=== PATIENT | female | born 1985 | race Caucasian/White ===

== ENCOUNTER 2020-03-14 08:35 | Outpatient (CLI) | payer SELFPAY ==
--- NOTE | 2020-03-14 08:30 | MM_ITS ---
WS: [id number] BILATERAL SCREENING DIGITAL MAMMOGRAM WITH CAD HISTORY: screening both breast COMPARISON: None available. Bilateral CC and MLO views submitted. Computer aided detection analyzed. Breast composition: The breasts are heterogeneously dense, which may obscure small masses. No suspici ous masses, microcalcifications or architectural distortion. MM/[id number] IMPRESSION: BI-RADS: 1-Negative FOLLOW UP: 1 Year Follow-up
== END 2020-03-14 08:36 | disposition home or self-care (01) ==
PROVIDERS: Visit Provider Nurse Practitioner Women's Health
DX: Z12.31 Encounter for screening mammogram for malignant neoplasm of breast (principal)
CPT/HCPCS: 77067

== ENCOUNTER → 2020-06-26 14:14 | Outpatient (BNVA) | payer OTHER, SELFPAY | PROVIDERS: Visit Provider Emergency Medicine | DX: Z11.59 Encounter for screening for other viral diseases (principal) | CPT/HCPCS: 87400; 87635 ==

== ENCOUNTER → 2020-11-08 12:56 | Outpatient (BNVA) | payer SELFPAY | PROVIDERS: PCP Nurse Practitioner Family; Visit Provider Urology | DX: N39.0 Urinary tract infection, site not specified (principal) | CPT/HCPCS: 81003 ==

== ENCOUNTER → 2023-11-06 07:48 | Outpatient (BNVA) | payer BC, SELFPAY | PROVIDERS: PCP Nurse Practitioner Family; Visit Provider Nurse Practitioner Women's Health | DX: N92.6 Irregular menstruation, unspecified (principal); Z34.90 Encounter for supervision of normal pregnancy, unspecified, unspecified trimester; I10 Essential (primary) hypertension | CPT/HCPCS: 81025; 86850; 86900 ==

== ENCOUNTER → 2023-11-18 11:04 | Outpatient (BNVA) | payer BC, SELFPAY | PROVIDERS: PCP Nurse Practitioner Family; Visit Provider Nurse Practitioner Women's Health | DX: Z34.90 Encounter for supervision of normal pregnancy, unspecified, unspecified trimester (principal) | CPT/HCPCS: 76801 ==

== ENCOUNTER → 2023-11-22 08:28 | Outpatient (BNVA) | payer BC, MEDICAID, SELFPAY | PROVIDERS: PCP Nurse Practitioner Family; Visit Provider Nurse Practitioner Women's Health | DX: Z34.90 Encounter for supervision of normal pregnancy, unspecified, unspecified trimester (principal) | CPT/HCPCS: 80053; 80307; 83036; 84315; 84443; 85025; 86592; 86762; 86803; 87086; 87340; 87806 ==

== ENCOUNTER 2023-11-28 13:06 | Outpatient (CLI) | payer BC, MEDICAID, SELFPAY ==
[2023-11-28 15:38] LABS: Total Volume, Urine 2200 mL; Urine Total Protein < 4.0 mg/dL (0-150)
[2023-11-28 15:39] LABS: Urine Total Protein 24 Hour < 88.0 mg/24hr (0-150)
== END 2023-11-28 13:07 | disposition home or self-care (01) ==
LOC: LAB 13:09
PROVIDERS: PCP Nurse Practitioner Family; Visit Provider Nurse Practitioner Women's Health
DX: I10 Essential (primary) hypertension (principal); O09.529 Supervision of elderly multigravida, unspecified trimester; O09.899 Supervision of other high risk pregnancies, unspecified trimester
CPT/HCPCS: 84156

== ENCOUNTER → 2023-12-17 09:09 | Outpatient (BNVA) | payer BC, MEDICAID, SELFPAY | PROVIDERS: PCP Nurse Practitioner Family; Visit Provider Obstetrics & Gynecology | DX: O09.899 Supervision of other high risk pregnancies, unspecified trimester (principal); Z3A.00 Weeks of gestation of pregnancy not specified | CPT/HCPCS: 82950 ==

== ENCOUNTER → 2024-01-03 08:26 | Outpatient (BNVA) | payer BC, MEDICAID, SELFPAY | PROVIDERS: PCP Nurse Practitioner Family; Visit Provider Obstetrics & Gynecology | DX: Z34.90 Encounter for supervision of normal pregnancy, unspecified, unspecified trimester (principal); Z14.1 Cystic fibrosis carrier | CPT/HCPCS: 82105 ==

== ENCOUNTER → 2024-01-30 09:24 | Outpatient (BNVA) | payer BC, MEDICAID, SELFPAY | PROVIDERS: PCP Nurse Practitioner Family; Visit Provider Obstetrics & Gynecology | DX: Z34.90 Encounter for supervision of normal pregnancy, unspecified, unspecified trimester (principal) | CPT/HCPCS: 76805 ==

== ENCOUNTER → 2024-02-26 08:04 | Outpatient (BNVA) | payer BC, MEDICAID, SELFPAY | PROVIDERS: PCP Nurse Practitioner Family; Visit Provider Obstetrics & Gynecology | DX: Z34.90 Encounter for supervision of normal pregnancy, unspecified, unspecified trimester (principal) | CPT/HCPCS: 76816 ==

== ENCOUNTER → 2024-02-27 07:52 | Outpatient (BNVA) | payer BC, MEDICAID, SELFPAY | PROVIDERS: PCP Nurse Practitioner Family; Visit Provider Nurse Practitioner Women's Health | DX: O09.899 Supervision of other high risk pregnancies, unspecified trimester (principal); Z3A.24 24 weeks gestation of pregnancy | CPT/HCPCS: 82950; 84315; 87086 ==

== ENCOUNTER → 2024-03-31 08:00 | Outpatient (BNVA) | payer BC, MEDICAID, SELFPAY | PROVIDERS: PCP Nurse Practitioner Family; Visit Provider Nurse Practitioner Women's Health | DX: O09.899 Supervision of other high risk pregnancies, unspecified trimester (principal) | CPT/HCPCS: 84315; 85025 ==

== ENCOUNTER → 2024-04-24 08:54 | Outpatient (BNVA) | payer BC, MEDICAID, SELFPAY | PROVIDERS: PCP Nurse Practitioner Family; Visit Provider Obstetrics & Gynecology | DX: Z53.9 Procedure and treatment not carried out, unspecified reason (principal) | CPT/HCPCS: 84315 ==

== ENCOUNTER → 2024-05-06 08:06 | Outpatient (BNVA) | payer BC, MEDICAID, SELFPAY | PROVIDERS: PCP Nurse Practitioner Family; Visit Provider Nurse Practitioner Women's Health | DX: O99.019 Anemia complicating pregnancy, unspecified trimester (principal) | CPT/HCPCS: 84315; 85025 ==

== ENCOUNTER → 2024-05-21 08:48 | Outpatient (BNVA) | payer BC, MEDICAID, SELFPAY | PROVIDERS: PCP Nurse Practitioner Family; Visit Provider Nurse Practitioner Women's Health | DX: Z36.4 Encounter for antenatal screening for fetal growth retardation (principal); Z3A.37 37 weeks gestation of pregnancy | CPT/HCPCS: 76816 ==

== ENCOUNTER 2024-05-21 10:02 | Outpatient (CLI) | payer BC, MEDICAID, SELFPAY ==
[2024-05-21 10:10] VITALS: BMI 34.2
[2024-05-21 10:14] VITALS: BP 146/87; PULSE 77
[2024-05-21 10:34] VITALS: BP 134/82; PULSE 77
[2024-05-21 10:39] LABS: Basophils # 0.1 10^3/uL (0.0-0.1); Basophils % 0.6 %; Eosinophils # 0.1 10^3/uL (0.0-0.8); Eosinophils % 1.5 %; Hematocrit 33.6 % (36-47); Lymphocytes # 1.8 10^3/uL (0.8-4.8); Lymphocytes % 21.7 %; Mean Corpuscular HGB Conc 32.1 g/dL (30-55); Mean Corpuscular Hemoglobin 31.1 pg (27-33); Mean Corpuscular Volume 96.8 fl (85-98); Monocytes # 0.7 10^3/uL (0.2-0.9); Monocytes % 8.2 %; Neutrophils # 5.52 10^3/uL (1.8-7.7); Nucleated Red Blood Cells % 0 %; Platelet Count 178 10^3/cmm (157-399); Red Blood Count 3.47 10^6/uL (3.85-5.65); Red Cell Distribution Width 14.4 % (12.1-15.1); White Blood Count 8.22 10^3/uL (3.29-11.43)
[2024-05-21 10:47] LABS: Bilirubin Urine Negative (Negative); Blood Urine 3+ (Negative); Glucose Urine UA Negative (Normal); Ketones Urine 1+ (Negative); Leukocyte Esterase Urine 3+ (Negative); Nitrate Urine Negative (Negative); Protein Urine Trace (Negative); Specific Gravity, Urine 1.012 (1.005-1.030); Urine Appearance Cloudy (CLEAR); Urine Color Yellow (Yellow); pH Urine 6.5 (5-7)
[2024-05-21 10:53] LABS: Add Urine Microscopic? YES; Bacteria Urine 4+ /hpf; Hyaline Casts Urine 2.87 /lpf; Squamous Epithelial Cell Urine 21-50 /hpf (0-5); WBC Urine >100 /hpf (0-5)
[2024-05-21 10:54] VITALS: BP 136/77; PULSE 77
[2024-05-21 10:58] LABS: Alanine Aminotransferase 11 U/L (0-33); Albumin Level 3.5 g/dL (3.5-5.2); Alkaline Phosphatase 92 U/L (35-105); Aspartate Amino Transferase 17 U/L (0-32); Blood Urea Nitrogen 7 mg/dL (6-20); Calcium 9.2 mg/dL (8.5-10.5); Carbon Dioxide 20 mmol/L (22-29); Chloride 101 mmol/L (98-107); Globulin 3.4 g/dL (1.3-4.6); Glomerular Filtration Rate 94.2 mL/min (90-130); Glucose 97 mg/dL (65-115); Osmolality Calculated 278 mOsm/kg (285-295); Sodium 135 mmol/L (136-145); Total Bilirubin 0.2 mg/dL (0.15-1.2); Total Protein 6.9 g/dL (6.6-8.7); Uric Acid 5.9 mg/dL (2.4-5.7)
[2024-05-21 11:01] LABS: Anion Gap 17.9 (5-19); Potassium 3.9 mmol/L (3.5-5.1)
[2024-05-21 11:05] LABS: Urine Creatinine 88 mg/dL (28-217); Urine Protein Random 19 mg/dL
[2024-05-21 11:06] LABS: UPRO/UCREAT Ratio 0.22 mg/mg CR
[2024-05-21 11:14] VITALS: BP 125/78; PULSE 80
[2024-05-21 11:28] LABS: Add Urine Culture? Yes
[2024-05-21 11:34] VITALS: BP 126/78; PULSE 80
[2024-05-21 11:50] VITALS: BP 126/78; PULSE 80; RESP 16
== END 2024-05-21 11:50 | disposition home or self-care (01) ==
LOC: OPOB 10:02 → OBGYN 10:03
PROVIDERS: Absent Provider Obstetrics & Gynecology; PCP Nurse Practitioner Family; Visit Provider Obstetrics & Gynecology
DX: O26.899 Other specified pregnancy related conditions, unspecified trimester (principal); Z3A.00 Weeks of gestation of pregnancy not specified; R03.0 Elevated blood-pressure reading, without diagnosis of hypertension
CPT/HCPCS: 36415; 59025; 80053; 81001; 82570; 84156; 84315; 84550; 85025; 87081; 87086; 99211

== ENCOUNTER 2024-06-01 20:32 | Inpatient (IN) | payer BC, MEDICAID, SELFPAY ==
[2024-06-01 19:50] VITALS: BMI 34.7
[2024-06-01 20:16] VITALS: BP 135/85; PULSE 86
[2024-06-01 20:25] LABS: Nitrazine Paper, PH Positive
[2024-06-01 20:32] VITALS: BP 132/82; PULSE 85
--- NOTE | 2024-06-01 21:35 | P.HP_ITS ---
Providers/Chief Complaint 2 Admitting Physician: Doc Jaquez MD Primary REPAIR MILLER: Moshe Jacques MD Primary Care Provider: MARQUEZ Stone Chief Complaint: Poss. SROM HPI REPAIR MILLER History of Present Illness Jeanna Mills is a 39 year old female EDC June 17, 2024 at 37 w 5 d no complications presented c/o fluid leakage mild UCs no bleeding + active movements Present Details : 2 Para: 1 Labs Rubella: Immune RPR: Negative GBS: Negative Medications/Allergies Home Medications Medication Instructions Recorded Confirmed Last Taken Type nitrofurantoin 100 mg PO BID PRN RUTIs #60 caps 11/06/22 05/28/24 Unknown Rx monohydrate/macrocrystals 100 mg capsule (Macrobid) PNV 153-FA 400 mcg-om3 35 mg-dha tab PO 11/22/23 05/28/24 Unknown History 25 mg-epa 5 mg-fish oil chew tablet ( Gummies) aspirin 81 mg tablet,delayed 81 mg PO DAILY 02/27/24 05/28/24 Unknown History release (Adult Aspirin Regimen) escitalopram oxalate 10 mg tablet 10 mg PO DAILY #30 tabs 03/31/24 05/28/24 Unknown Rx (Lexapro) escitalopram oxalate 5 mg tablet 5 mg PO DAILY #30 tabs 03/31/24 05/28/24 Unknown Rx ferrous sulfate 325 mg (65 mg 325 mg PO BID #60 tabs 03/31/24 05/28/24 Unknown Rx iron) tablet (Feosol) Allergies Allergy/AdvReac Type Severity Reaction Status Date / Time ciprofloxacin AdvReac Mild Nausea Verified 05/28/24 08:37 PFSH REPAIR MILLER 2 PFSH: Medical History FH: breast cancer in first degree relative when <50 years old Recurrent UTI Hypertension No pertinent past medical history neghx: dm,thryoid,dvt/pe PCP: Elis Callejas Depression Fibromyalgia RLS (restless legs syndrome) Surgical History H/O wisdom tooth extraction 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 Family History Mother Breast cancer Dx'd in her early 40's Hypertension Thyroid cancer Family/Other Breast cancer Maternal aunt--dx'd in her 50's Paternal aunt Cousin--Dx'd in her 40's Thyroid cancer Maternal aunt Grandmother Breast cancer Paternal grandmother--Dx'd in her 60's Father Hypertension Diabetes Hyperlipidemia Denies family history of Colon cancer Ovarian cancer Uterine cancer Social History Smoking and tobacco/nicotine status: never used tobacco/nicotine History History History 2 2 Term 1 0 Miscarriages/Ectopic 0 Living Children 1 Care MARY Calculator 2 Estimated Delivery Date Method Current WG Current Estimate 06/17/24 LMP (Certain) 37w 6d Other Estimates 06/16/24 Ultrasound #1 38w 0d Specific Issues/Plans * CHRONIC HTN; on baby asa * DEPRESSION-started Lexapro early * ELDERLY MULTIP * Recurrent UTIs * CF CARRIER; FOB is NOT a carrier Vitals/I&O/Wt Last Vital Signs Temp 98.0 F 06/02/24 07:00 Pulse 69 06/02/24 09:53 BP 130/72 06/02/24 09:53 Pulse Ox 100 06/02/24 01:27 O2 Del Method Room Air 06/01/24 21:20 06/01/24 06/02/24 06/02/24 22:59 06:59 14:59 Intake Total 250 / 250 0.367 / 0.367 Balance 250 / 250 0.367 / 0.367 Weight last 48 hrs Weight 215 lb 8 oz Physical Exam 2 Narrative: Weight 211 lbs; 5'6 VS normal General comfortable, awake, alert Lungs: clear Cor: RRR Abd: nontender Cervix: + gross clear fluid 4 cm / 50% / -3 Ext: no edema External monitor: heart tracing good variability, + accelerations Urinary Catheter Management: Vergara: Cath Placed During This Visit: yes Reason for Continuing Indwelling Catheter: Required Immobilization for Trauma or Surgery or Anesthesia Urinary Catheter Date of Insertion: 06/02/24 Urinary Catheter Time of Insertion: 02:00 Data 06/01/24 21:05 Results Labs OB ([facility]): 2 Obstetrics US 05/21/24 Blood Type A Positive 06/01/24 Antibody Screen Negative 06/01/24 Hct 32.5 % (36-47) L 06/01/24 Hgb 10.70 g/dL (11.27-16.99) L 06/01/24 Rho(D) Type Rh positive 06/01/24 Plt Count 173 10^3/cmm (157-399) 06/01/24 Hep Bs Antigen Non-reactive (NON-REACTIVE) 11/22/23 Hep Bs Ag Confirmation Not Reportable 11/22/23 Hepatitis C Antibody Non-reactive (Nonreactive) 11/22/23 Rubella IgG Antibody 356.2 IU/mL (0.0-10.0) H 11/22/23 RPR Nonreactive (Nonreactive) 11/22/23 HIV 1&2 Ab & HIV 1 Ag Non-reactive (Non-Reactiv) 11/22/23 TSH 0.71 uIU/mL (0.27-4.20) 11/22/23 C.trachomatis RNA (TMA) Pending 06/02/24 N.gonorrhoeae RNA (TMA) Pending 06/02/24 Chlamydia/GC Comment Pending 06/02/24 Cystic Fibrosis Screen Carrier 11/22/23 Glucose 1 Hr 50 gm 128 mg/dL (85-140) 02/27/24 Hemoglobin A1c 5.1 % (4.0-6.0) 11/22/23 Uric Acid 5.9 mg/dL (2.4-5.7) H 05/21/24 HCG, Qual Positive (Negative) H 11/06/23 Urine Opiates Screen Negative ng/mL (Negative) 11/22/23 Ur Barbiturates Screen Negative ng/mL (Negative) 11/22/23 Ur Phencyclidine Scrn Negative ng/mL (Negative) 11/22/23 Ur Amphetamines Screen Negative ng/mL (Negative) 11/22/23 U Benzodiazepines Scrn Negative ng/mL (Negative) 11/22/23 Urine Cocaine Screen Negative ng/mL (Negative) 11/22/23 U Marijuana (THC) Screen Negative ng/mL (Negative) 11/22/23 Micro Urine Specimen 05/21/24 A&P Assessment and plan (1) : 37 w 5 d spontaneous rupture of membranes fetus reassuring GBS negative cervix at 4 cm admit expectant management h/o x one Attestations 2 Medical Necessity Statement*: patient at 37 w 5 d with spontaneous rupture of membranes Coding Level of Care Code Acute Code for Chg Fwd Diagnoses Z34.90 Time Spent (min) 45
[2024-06-01 22:32] LABS: Basophils # 0.1 10^3/uL (0.0-0.1); Basophils % 0.5 %; Eosinophils # 0.1 10^3/uL (0.0-0.8); Eosinophils % 1.2 %; Hematocrit 32.5 % (36-47); Lymphocytes % 21.9 %; Mean Corpuscular HGB Conc 32.9 g/dL (30-55); Mean Corpuscular Hemoglobin 31.2 pg (27-33); Mean Corpuscular Volume 94.8 fl (85-98); Mean Platelet Volume 10.8 fL (7.4-10.4); Monocytes # 0.9 10^3/uL (0.2-0.9); Monocytes % 9.4 %; Neutrophils # 6.08 10^3/uL (1.8-7.7); Neutrophils % 66.3 %; Nucleated Red Blood Cells % 0 %; Platelet Count 173 10^3/cmm (157-399); Red Blood Count 3.43 10^6/uL (3.85-5.65); Red Cell Distribution Width 14.6 % (12.1-15.1); White Blood Count 9.17 10^3/uL (3.29-11.43)
[2024-06-01] MEDS: dextrose 5%-lactated ringers 1,000 ML 125 ML IV (22:43)
[2024-06-01 22:47] VITALS: TEMP 37.1
[2024-06-01 22:48] VITALS: BP 141/87; PULSE 79
[2024-06-01 23:37] VITALS: BP 132/80; PULSE 77
[2024-06-01 23:52] VITALS: BP 131/83; PULSE 73
[2024-06-02] VITALS (72 sets, daily range): BP systolic 117–166; BP diastolic 56–91; PULSE 66–100; RESP 17; TEMP 36.4–36.7; O2SAT 98–100
[2024-06-02] MEDS: lactated ringers 1,000 ML 999 ML IV ×2 (00:19→01:22)
--- NOTE | 2024-06-02 01:15 | P.ANESASSM_ITS ---
Pre-Anesthetic Assessment Height/Weight: Height 1.68 m Weight 97.749 kg Temp Pulse BP Pulse Ox O2 Del Method 98.8 F 88 150/77 100 Room Air 06/01/24 22:47 06/02/24 01:35 06/02/24 01:35 06/02/24 01:27 06/01/24 21:20 Preop Diagnosis: labor pain labor epidural Familial anesthetic complications: required more anesthesia with kidney removal (for donation). Was Beta Blayne taken within 24 hours: N/A Was Clonidine taken within 24 hours: N/A Social No alcohol and No tobacco Exam alert and oriented x 3 Airway Submandibular: within normal limits Cervical ROM: within normal limits Mallampati: Class II Dentition: full History/ROS No significant complaints Anesthetic Plan ASA status: 2 Anesthesia: Anesthesia Evaluation and Regional (specify below) Medications/Allergies Home Medications Medication Instructions Recorded Confirmed Last Taken Type nitrofurantoin 100 mg PO BID PRN RUTIs #60 caps 11/06/22 05/28/24 Unknown Rx monohydrate/macrocrystals 100 mg capsule (Macrobid) PNV 153-FA 400 mcg-om3 35 mg-dha tab PO 11/22/23 05/28/24 Unknown History 25 mg-epa 5 mg-fish oil chew tablet ( Gummies) aspirin 81 mg tablet,delayed 81 mg PO DAILY 02/27/24 05/28/24 Unknown History release (Adult Aspirin Regimen) escitalopram oxalate 10 mg tablet 10 mg PO DAILY #30 tabs 03/31/24 05/28/24 Unknown Rx (Lexapro) escitalopram oxalate 5 mg tablet 5 mg PO DAILY #30 tabs 03/31/24 05/28/24 Unknown Rx ferrous sulfate 325 mg (65 mg 325 mg PO BID #60 tabs 03/31/24 05/28/24 Unknown Rx iron) tablet (Feosol) Allergies Allergy/AdvReac Type Severity Reaction Status Date / Time ciprofloxacin AdvReac Mild Nausea Verified 05/28/24 08:37 Current Medications Generic Name Dose Route Start Last Admin Trade Name Freq PRN Reason Stop Dose Admin Dextrose/Lactated Ringer's 1,000 mls @ 125 mls/hr 06/01/24 21:15 06/02/24 00:19 Dextrose 5%-Lactated Ringers IV 0 mls/hr .Q8H TANG Infusion Lactated Ringer's 1,000 mls @ 999 mls/hr 06/01/24 21:15 06/02/24 01:22 Lactated Ringers IV 999 mls/hr .Q1H1M PRN Administration Per L&D Rescitation Protocol Lactated Ringer's 1,000 mls @ 999 mls/hr 06/02/24 00:20 06/02/24 00:19 Lactated Ringers IV 999 mls/hr .Q1H1M PRN Administration See label comments Ropivacaine 100 mg in 50 mls @ 10 mls/hr 06/02/24 00:30 06/02/24 01:33 Naropin Syringe EPIDURAL 13 mls/hr .Q5H TANG Administration PFSH Anesthesia Medical History FH: breast cancer in first degree relative when <50 years old Recurrent UTI Hypertension No pertinent past medical history neghx: dm,thryoid,dvt/pe PCP: Elis Chinchilla Fibromyalgia RLS (restless legs syndrome) Surgical History H/O wisdom tooth extraction 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 Family History Mother Breast cancer Dx'd in her early 40's Hypertension Thyroid cancer Family/Other Breast cancer Maternal aunt--dx'd in her 50's Paternal aunt Cousin--Dx'd in her 40's Thyroid cancer Maternal aunt Grandmother Breast cancer Paternal grandmother--Dx'd in her 60's Father Hypertension Diabetes Hyperlipidemia Denies family history of Colon cancer Ovarian cancer Uterine cancer Social History Smoking and tobacco/nicotine status: never used tobacco/nicotine Female Reproductive History : 2 Data Anesthesia 06/01/24 21:05 Short CBC 06/01/24 Range/Units 21:05 WBC 9.17 (3.29-11.43) 10^3/uL Hgb 10.70 L (11.27-16.99) g/dL Hct 32.5 L (36-47) % MCV 94.8 (85-98) fl Plt Count 173 (157-399) 10^3/cmm Neut % (Auto) 66.3 % Neut # (Auto) 6.08 (1.8-7.7) 10^3/uL Blood Bank 06/01/24 21:05 Blood Type A Positive Rho(D) Type Rh positive Antibody Screen Negative Cardiac Studies: 2 No Data to Display
[2024-06-02] MEDS: ROPivacaine syringe 100 MG/50 ML SYRINGE 13 MG EPIDURAL ×3 (01:33→10:33)
--- NOTE | 2024-06-02 01:36 | ANES.PROC ---
Anesthesia Procedures Procedure/Date: 06/02/24 Epidural: Time Out Performed: Yes Consents Signed: Procedure Consent Consent: from patient, risks and benefits reviewed and patient agrees to proceed Lumbar Level: L4-L5 Epidural position: sitting Epidural procedure: sterile prep of area, 1% lidocaine to numb the area, 18 g needle, negative for paresthesia passed, neg for paresthesia, test dose given, 1.5% xylocaine 1:200k epi, placed PCEA, no systemic response, sterile dressing applied and 0.2% Ropiavacaine @ mls/hr (13) Additional Comments: GUERA at 5, small CSF return through catheter. removed and on second attempt, GUERA at 4.5 with negative aspiration of heme/CSF. negative test dose. pt. tolerated well.
[2024-06-02] MEDS: ondansetron 2 mg/ML SDV 2 mL 4 MG IVP (04:18)
--- NOTE | 2024-06-02 07:50 | P.PN_ITS ---
SUPERVISOR DITCHING Subjective 2 Subjective: Interval history: comfortable with epidural fetus reassuring uterine contractions occasional on external monitor cervix: 8-9 cm / -3 plan start pitocin augmentation Labor: Station: -3 Amniotic Membrane Status: Ruptured Monitor Mode: External Contraction Pattern: Irregular Vitals/I&O/Wt Last Vital Signs Temp 98.0 F 06/02/24 07:00 Pulse 69 06/02/24 09:53 BP 130/72 06/02/24 09:53 Pulse Ox 100 06/02/24 01:27 O2 Del Method Room Air 06/01/24 21:20 06/01/24 06/02/24 06/02/24 22:59 06:59 14:59 Intake Total 250 / 250 2.367 / 2.367 Balance 250 / 250 2.367 / 2.367 Weight last 48 hrs Weight 215 lb 8 oz Physical Exam 2 Urinary Catheter Management: Vergara: Cath Placed During This Visit: yes Reason for Continuing Indwelling Catheter: Required Immobilization for Trauma or Surgery or Anesthesia Urinary Catheter Date of Insertion: 06/02/24 Urinary Catheter Time of Insertion: 02:00 Data 06/01/24 21:05 A&P Assessment and plan (1) : Attestations 2 Medical Necessity Statement*: patient at 37 w 6 d, admitted with spontaneous rupture of membranes Coding Level of Care Code Acute Code for Chg Fwd Diagnoses Z34.90 Time Spent (min) 30
[2024-06-02] MEDS: oxytocin 30 UNIT/500 ML BAG IV (08:38)
[2024-06-02] MEDS: dextrose 5%-lactated ringers 1,000 ML 125 ML IV (08:38)
--- NOTE | 2024-06-02 12:20 | PM.DELIVERY ---
Delivery Note: Date of delivery: June 02, 2024 Pre-delivery diagnoses: 37 w 5 d spontaneous rupture of membranes active labor Post-delivery diagnoses: 37 w 5 d spontaneous rupture of membranes active labor pitocin augmentation vaginal delivery repair of second-degree perineal laceration Procedure: pitocin augmentation vaginal delivery repair of second-degree perineal laceration Op report anesthesia: Epidural Delivering Physician: Doc Jaquez MD Estimated blood loss (mL): 300 Findings: , vigorous male cord gases and blood obtained normal placenta and cord second-degree perineal laceration repaired EBL: 300 cc no complications Pre-Delivery Course: normal labor course Delivery: vaginal Post-Delivery Status: good History History History 2 Term 1 0 Miscarriages/Ectopic 0 Living Children 1 A&P Assessment and plan (1) Vaginal delivery: Coding Level of Care Code Acute Code for Chg Fwd Diagnoses Vaginal delivery O80 Time Spent (min) 60
[2024-06-02] MEDS: methylergonovine 0.2 mg/mL INJ 1 mL IM (12:41)
--- NOTE | 2024-06-02 12:49 | PC.NURSE ---
Dr. Jaquez was called on 06/02/24 @0078 due to pt having 330ml of blood loss since delivery. Orders to give methergine.
[2024-06-02] MEDS: ibuprofen 800 mg tablet PO (14:57)
[2024-06-02] MEDS: benzocaine-menthol 78 gm Canister 1 SPRAY TOPICAL (14:58)
[2024-06-03] MEDS: acetaminophen 325 mg Tablet 650 MG PO
[2024-06-03 02:00] VITALS: BP 127/85; PULSE 67; TEMP 36.6; O2SAT 99
[2024-06-03 02:19] LABS: Hematocrit 26.7 % (36-47); Mean Corpuscular HGB Conc 32.2 g/dL (30-55); Mean Corpuscular Hemoglobin 31.2 pg (27-33); Mean Corpuscular Volume 96.7 fl (85-98); Mean Platelet Volume 12.1 fL (7.4-10.4); Platelet Count 152 10^3/cmm (157-399); Red Blood Count 2.76 10^6/uL (3.85-5.65); Red Cell Distribution Width 14.7 % (12.1-15.1); White Blood Count 9.92 10^3/uL (3.29-11.43)
[2024-06-03 06:00] VITALS: BP 129/80; PULSE 80; RESP 16; TEMP 36.4; O2SAT 99
--- NOTE | 2024-06-03 08:21 | ANE.PACU2 ---
Inpatient post-anesthesia follow up: Airway intact: Yes Vital signs: Temperature 97.8 F Pulse Rate 86 Respiratory Rate 16 Blood Pressure 128/86 Pulse Oximetry 98 Oxygen Delivery Me thod Room Air Oxygen Flow Rate Fraction of Inspir ed Oxygen Hydration adequate: Yes Nausea and vomiting: No Pain level: 1 Mental status: Baseline Epidural Start/End: Epidural Start Date: 06/02/24 Epidural Start Time: 01:15 Epidural End Date: 06/02/24 Epidural End Time: 19:21
[2024-06-03] MEDS: PRENATAL VIT NO.130/IRON/FOLIC 1 EACH TABLET PO (09:34)
[2024-06-03] MEDS: docusate sodium 100 mg Capsule PO ×2 (09:34→17:37)
[2024-06-03] MEDS: ibuprofen 800 mg tablet PO (09:34)
[2024-06-03 09:38] VITALS: BP 114/70; PULSE 86; RESP 16; TEMP 36.8; O2SAT 97
--- NOTE | 2024-06-03 11:50 | PM.OBGYPN ---
[employer] SUPERVISOR Subjective Subjective: Interval history: no c/o no headaches, dizziness, nausea, abdominal pain, bleeding normal lochia mild perineal pain, relieved with pain meds eating, voiding, ambulating well Labor: Station: +2 Amniotic Membrane Status: Ruptured Monitor Mode: External Contraction Pattern: Regular Vitals/I&O/Wt Last Vital Signs Temp 97.8 F 06/04/24 10:50 Pulse 86 06/04/24 10:50 Resp 16 06/04/24 10:50 BP 128/86 06/04/24 10:50 Pulse Ox 98 06/04/24 10:50 O2 Del Method Room Air 06/04/24 04:00 Physical Exam Narrative: afebrile, VS normal comfortable, awake, alert Abd: soft, nontender. fundus firm Ext: no edema; nontender Urinary Catheter Management: Vergara: Cath Placed During This Visit: yes, but has since been removed by the nurse Reason for Continuing Indwelling Catheter: Decision to DC Catheter Urinary Catheter Date of Insertion: 06/02/24 Urinary Catheter Time of Insertion: 02:00 Date Urinary Catheter Removed: 06/02/24 Time Urinary Catheter Discontinued: 11:40 Data 06/03/24 00:59 A&P Assessment and plan (1) Vaginal delivery: PPD #1 doing well normal course continue care Attestations Medical Necessity Statement*: patient s/p vaginal delivery, plan care Coding Level of Care Code Acute Code for Chg Fwd Diagnoses Vaginal delivery O80 Time Spent (min) 20
[2024-06-03 12:45] LABS: Chlamydia Trachomatis RNA TMA NOT DETECTED (NOT DETECTED); Neisseria Gonorrhoeae RNA, TMA NOT DETECTED (NOT DETECTED)
[2024-06-03 17:41] VITALS: BP 147/86; PULSE 71; RESP 16; TEMP 36.7; O2SAT 100
[2024-06-03 18:53] VITALS: BP 145/97; PULSE 71
[2024-06-03] MEDS: lanolin oint 7 gm 1 APPLIC TOPICAL (21:49)
[2024-06-03 22:00] VITALS: BP 119/68; PULSE 76; O2SAT 98
[2024-06-04] MEDS: acetaminophen 325 mg Tablet 650 MG PO (02:40)
[2024-06-04 04:00] VITALS: BP 132/83; PULSE 75; RESP 16; TEMP 36.6; O2SAT 98
[2024-06-04 10:50] VITALS: BP 128/86; PULSE 86; RESP 16; TEMP 36.6; O2SAT 98
--- NOTE | 2024-06-04 13:10 | P.DS_ITS ---
Discharge Providers POSTDOCTORAL FELLOW Date of Admission: 06/01/24 20:32 Date of Discharge: 06/04/24 Attending Provider at Admission: Doc Jaquez MD Attending Provider at Discharge: Doc Jaquez MD Consults: none Primary POSTDOCTORAL FELLOW: Moshe Jacques MD Primary Care Provider: MARQUEZ Stone Diagnoses at Discharge Discharge Diagnosis (1) Vaginal delivery: Details from hospital stay: 39 y.o. At 37 w 5 d No complications Presented c/o fluid leakage cervix was at 4 cm patient progressed to complete cervical dilatation fetus was reassuring throughout patient had vaginal delivery without any complications, with repair of second- degree perineal laceration patient did well and was discharged to home on the second day Status: Acute Reason for Visit Reason for Visit: Poss. SROM Brief History: 39 y.o. At 37 w 5 d No complications Presented c/o fluid leakage Hospital Course Hospital Course 39 y.o. At 37 w 5 d No complications Presented c/o fluid leakage cervix was at 4 cm patient progressed to complete cervical dilatation fetus was reassuring throughout patient had vaginal delivery without any complications, with repair of second- degree perineal laceration patient did well and was discharged to home on the second day Information Peripartum Data: Infant Delivery Method: Vaginal Laceration description: Perineal - 2nd Degree Episiotomy description: None complications: none Physical Exam Narrative: afebrile, VS normal comfortable, awake, alert Abd: soft, nontender. fundus firm Ext: no edema; nontender Urinary Catheter Management: Vergara: Cath Placed During This Visit: yes, but has since been removed by the nurse Reason for Continuing Indwelling Catheter: Decision to DC Catheter Urinary Catheter Date of Insertion: 06/02/24 Urinary Catheter Time of Insertion: 02:00 Date Urinary Catheter Removed: 06/02/24 Time Urinary Catheter Discontinued: 11:40 History History History 2 Term 1 0 Miscarriages/Ectopic 0 Living Children 1 Discharge Data Studies Completed and Pending Laboratory Results WBC 9.92 10^3/uL (3.29-11.43) 06/03/24 00:59 RBC 2.76 10^6/uL (3.85-5.65) L 06/03/24 00:59 Hgb 8.60 g/dL (11.27-16.99) L 06/03/24 00:59 Hct 26.7 % (36-47) L 06/03/24 00:59 MCV 96.7 fl (85-98) 06/03/24 00:59 MCH 31.2 pg (27-33) 06/03/24 00:59 MCHC 32.2 g/dL (30-55) 06/03/24 00:59 RDW 14.7 % (12.1-15.1) 06/03/24 00:59 Plt Count 152 10^3/cmm (157-399) L 06/03/24 00:59 MPV 12.1 fL (7.4-10.4) H 06/03/24 00:59 Neut % (Auto) 66.3 % 06/01/24 21:05 Lymph % (Auto) 21.9 % 06/01/24 21:05 Cedar % (Auto) 9.4 % 06/01/24 21:05 Eos % (Auto) 1.2 % 06/01/24 21:05 Baso % (Auto) 0.5 % 06/01/24 21:05 Neut # (Auto) 6.08 10^3/uL (1.8-7.7) 06/01/24 21:05 Lymph # (Auto) 2.0 10^3/uL (0.8-4.8) 06/01/24 21:05 Cedar # (Auto) 0.9 10^3/uL (0.2-0.9) 06/01/24 21:05 Eos # (Auto) 0.1 10^3/uL (0.0-0.8) 06/01/24 21:05 Baso # (Auto) 0.1 10^3/uL (0.0-0.1) 06/01/24 21:05 Nucleated RBC % (auto) 0 % 06/01/24 21:05 Nucleated RBCs # 0.0 /100WBC 06/01/24 21:05 Fluid pH (paper) Positive H 06/01/24 20:19 C.trachomatis RNA (TMA) Not detected (NOT DETECTED) 06/02/24 06:44 Chlamydia/GC Comment See note 06/02/24 06:44 N.gonorrhoeae RNA (TMA) Not detected (NOT DETECTED) 06/02/24 06:44 Blood Type A Positive 06/01/24 21:05 Rho(D) Type Rh positive 06/01/24 21:05 Antibody Screen Negative 06/01/24 21:05 Procedures Performed vaginal delivery repair of second-degree perineal laceration Vitals Last Vital Signs Temp 97.8 F 06/04/24 10:50 Pulse 86 06/04/24 10:50 Resp 16 06/04/24 10:50 BP 128/86 06/04/24 10:50 Pulse Ox 98 06/04/24 10:50 O2 Del Method Room Air 06/04/24 04:00 Results Labs OB ([facility]): Obstetrics US 05/21/24 Blood Type A Positive 06/01/24 Antibody Screen Negative 06/01/24 Hct 26.7 % (36-47) L 06/03/24 Hgb 8.60 g/dL (11.27-16.99) L 06/03/24 Rho(D) Type Rh positive 06/01/24 Plt Count 152 10^3/cmm (157-399) L 06/03/24 Hep Bs Antigen Non-reactive (NON-REACTIVE) 11/22/23 Hep Bs Ag Confirmation Not Reportable 11/22/23 Hepatitis C Antibody Non-reactive (Nonreactive) 11/22/23 Rubella IgG Antibody 356.2 IU/mL (0.0-10.0) H 11/22/23 RPR Nonreactive (Nonreactive) 11/22/23 HIV 1&2 Ab & HIV 1 Ag Non-reactive (Non-Reactiv) 11/22/23 TSH 0.71 uIU/mL (0.27-4.20) 11/22/23 C.trachomatis RNA (TMA) Not detected (NOT DETECTED) N.gonorrhoeae RNA (TMA) Not detected (NOT DETECTED) Chlamydia/GC Comment See note 06/02/24 Cystic Fibrosis Screen Carrier 11/22/23 Glucose 1 Hr 50 gm 128 mg/dL (85-140) 02/27/24 Hemoglobin A1c 5.1 % (4.0-6.0) 11/22/23 Uric Acid 5.9 mg/dL (2.4-5.7) H 05/21/24 HCG, Qual Positive (Negative) H 11/06/23 Urine Opiates Screen Negative ng/mL (Negative) 11/22/23 Ur Barbiturates Screen Negative ng/mL (Negative) 11/22/23 Ur Phencyclidine Scrn Negative ng/mL (Negative) 11/22/23 Ur Amphetamines Screen Negative ng/mL (Negative) 11/22/23 U Benzodiazepines Scrn Negative ng/mL (Negative) 11/22/23 Urine Cocaine Screen Negative ng/mL (Negative) 11/22/23 U Marijuana (THC) Screen Negative ng/mL (Negative) 11/22/23 Micro Urine Specimen 05/21/24 Discharge Plan Discharge Patient Disposition: Home Condition: Stable Prescriptions: Continued nitrofurantoin monohyd/m-cryst [Macrobid] 100 mg capsule 100 mg PO BID PRN (Reason: RUTIs) Qty: 60 3RF Hold Instructions: Guidelines Rx Instructions: must administer with a meal/food Gummies 400 mcg-35 mg- 25 mg-5 mg tablet,chewable PO escitalopram oxalate 5 mg tablet 5 mg PO DAILY Qty: 30 3RF Rx Instructions: take with 10mg tab also to equal 15mg escitalopram oxalate [Lexapro] 10 mg tablet 10 mg PO DAILY Qty: 30 4RF Rx Instructions: take with 5mg tab to equal 15mg daily ferrous sulfate [Feosol] 325 mg (65 mg iron) tablet 325 mg PO BID Qty: 60 6RF Discontinued aspirin [Adult Aspirin Regimen] 81 mg tablet,delayed release (DR/EC) 81 mg PO DAILY Discharge Orders: Discharge Order (Routine); Ordered 06/04/24 Ordered By: Doc Jaquez Referrals: Moshe Jacques MD [Physician] - 06/18/24 8:30 am ( You have a 2 week appt on 06/18/24 at 8:30am You have a 6 week appt on 07/16/24 at 2:15pm ) Discharge Diet: Usual diet Discharge Activity: Increase activity as tolerated Patient Instructions: Depression (DC), Preeclampsia During (ED), Opioid Safety (DC), Preeclampsia and Eclampsia After Delivery (GEN), Hemorrhage (DC), OB Discharge Report, OB Food/Drug Interaction Guide, Opioid Safety, OB Home Care, OB Vaginal Deliveries - [facility], Abnormal Bleeding Discharge Attestations POSTDOCTORAL FELLOW Time Spent in Discharge Care*: less than 30 min Coding Level of Care Code Acute Code for Chg Fwd Diagnoses Vaginal delivery O80 Time Spent (min) 20
== END 2024-06-04 11:35 | disposition home or self-care (01) | DRG 807 ==
LOC: OPOB 20:33 → OBGYN 20:33
PROVIDERS: Admitting Provider Obstetrics & Gynecology; PCP Nurse Practitioner Family; Visit Provider Obstetrics & Gynecology
DX: O70.1 Second degree perineal laceration during delivery (principal); Z37.0 Single live birth; Z3A.37 37 weeks gestation of pregnancy; O99.344 Other mental disorders complicating childbirth; F32.A Depression, unspecified
CPT/HCPCS: 36415; 51702; 59025; 59409; 83986; 85025; 85027; 86850; 86900; 87491; 87591; 96372; 99211; J2210; J2405; J2590; J2795; J7120; J7121

== ENCOUNTER → 2024-07-05 13:31 | Outpatient (BNVA) | payer BC, MEDICAID, SELFPAY | PROVIDERS: PCP Nurse Practitioner Family | DX: R39.9 Unspecified symptoms and signs involving the genitourinary system | CPT/HCPCS: 81000 ==